=== PATIENT | male | born 1980 | race Caucasian/White ===

== ENCOUNTER 2016-07-28 19:33 | Inpatient (IN) | payer OTHER ==
--- NOTE | ~2016-07-28 | DS ---
Unit #: [id number] #: [id number] Patient: SIRISHA FONTANEZ [id number] [facility] [address] [place] [address] [id number] MR#: [id number] NAME: SIRISHA FONTANEZ ROOM: [facility] Age: 36 Sex: M Admission Date: 07/28/2016 : 1980 Discharge Date: 08/03/2016 Attending Physician: Dean Collazo M.D. Primary Care Physician: Primary Care Physician No DISCHARGE SUMMARY REASON FOR ADMISSION The patient is a 36-year-old white male, admitted in transfer from the [facility] in a state of methamphetamine intoxication. HOSPITAL COURSE The patient was admitted to the [address] [place] [address] unit and placed on suicide precautions. Home medications including Effexor XR and Strattera were not continued and the patient was begun on Geodon 40 mg b.i.d. which he consistently refused to comply as the patient's stay in the hospital progressed, he did become a bit more cooperative and active within the therapeutic milieu. He did acknowledge his methamphetamine use probable and by 08/03/2016, arrangements have been made for the patient to go to "[facility]" in [place], [place]. Discharge was ordered. FINAL DIAGNOSES Methamphetamine use disorder; mood disorder, unspecified. DISPOSITION ON DISCHARGE No psychotropic or other medications were ordered at the time of discharge. FOLLOWUP Followup will take place through the auspices of "[facility]" in [place], [place]. PROGNOSIS The patient's prognosis is considered fair. Dictated by... Dean Collazo M.D. CB/tae TD: 08/03/2016 15:54 JOB #: [id number] Unit #: [id number] #: [id number] Patient: SIRISHA FONTANEZ DISCHARGE SUMMARY Page 1 of 1 X Dean Collazo MD X DISCHARGE SUMMARY
--- NOTE | ~2016-07-28 | PN ---
Unit #: [id number] #: [id number] Patient: SIRISHA FONTANEZ [id number] [facility] [address] [place] [address] [id number] MR#: [id number] NAME: SIRISHA FONTANEZ ROOM: P121 Age: 36 Sex: M Admission Date: 07/28/2016 : 1980 Attending Physician: Dean Collazo M.D. Admitting Physician: Dean Collazo M.D. Primary Care Physician: Primary Care Physician Bailee MENDIETA PROGRESS NOTES DATE 07/31/2016 DISCUSSION The patient finally wakens for interview today. He is angry and irritable during interview but exhibits no pressured speech. He is refusing Geodon stating that he was prescribed Effexor by "the head track coach" prior to coming in the hospital. He very much minimizes his methamphetamine abuse and the roll of this had in his incarceration and suicide attempt. He at this point is euthymic and is denying suicidal ideation though he is uncertain where he will go following discharge. At this point I plan to watch the patient for another 24 hours and should he deny suicidal ideation and continue to refuse medications we will order discharge. Dictated by... Dean Collazo M.D. CB/janice TD: 08/01/2016 03:50 JOB #: [id number] [facility] PROGRESS NOTES Page 1 of 1 X Dean Collazo MD X PROGRESS NOTE
--- NOTE | ~2016-07-28 | PN ---
Unit #: [id number] #: [id number] Patient: SIRISHA FONTANEZ [id number] [facility] [address] [place] [address] [id number] I MR#: [id number] NAME: SIRISHA FONTANEZ ROOM: P121 Age: 36 Sex: M Admission Date: 07/28/2016 : 1980 Attending Physician: Dean Collazo M.D. Admitting Physician: Dean Collazo M.D. Primary Care Physician: Primary Care Physician Bailee MENDIETA PROGRESS NOTES DATE 07/30/2016 DISCUSSION The patient is again abed and cannot be aroused for interview today despite multiple attempts on the part of this physician to arouse him. We continue his trial of Geodon given what appears to have been manic or substance-induced psychotic symptoms at the time of admission. Dictated by... Dean Collazo M.D. CB/bzg TD: 07/30/2016 14:29 JOB #: [id number] [facility] PROGRESS NOTES Page 1 of 1 X Dean Collazo MD PROGRESS NOTE
--- NOTE | ~2016-07-28 | PN ---
Unit #: [id number] #: [id number] Patient: SIRISHA FONTANEZ [id number] [facility] [address] [place] [address] [id number] I MR#: [id number] NAME: SIRISHA FONTANEZ ROOM: [facility] Age: 36 Sex: M Admission Date: 07/28/2016 : 1980 Attending Physician: Dean Collazo M.D. Admitting Physician: Dean Collzao M.D. Primary Care Physician: Primary Care Physician Bailee MENDIETA PROGRESS NOTES DATE 08/01/2016 DISCUSSION The patient is today pleasant and cooperative but is expressing interest in residential chemical dependence treatment. I will ask the social worker clinical to see regarding possible coverage [facility]. Dictated by... Dean Collazo M.D. CB/janice TD: 08/01/2016 22:56 JOB #: [id number] [facility] PROGRESS NOTES Page 1 of 1 X Dean Collazo MD X PROGRESS NOTE
--- NOTE | ~2016-07-28 | HP ---
Unit #: [id number] #: [id number] Patient: ANUJ FONTANEZ [id number] [facility] [address] [place] [address] [id number] I MR#: [id number] NAME: ANUJ FONTANEZ ROOM: P121 Age: 36 Sex: M Admission Date: 07/28/2016 : 1980 Attending Physician: Dean Collazo M.D. Admitting Physician: Dean Collazo M.D. Primary Care Physician: Primary Care Physician No HISTORY AND PHYSICAL HISTORY OF PRESENT ILLNESS Anuj is a 36 year old admitted to [address] [place] [address] reporting depression and verbalizing wanting to hurt himself. He was admitted to [facility] as a transfer from [facility]. He has current charges to include wanton endangerment, assault on a catapult and arresting gear officer, criminal mischief, violation of an EPO and stalking. At the time of this attempted interview and exam, he is belligerent and noncompliant. History is taken from his chart and exam is limited. PAST MEDICAL HISTORY Illicit substance abuse to include methamphetamine. PAST SURGICAL HISTORY Nothing reported. ALLERGIES No known drug allergies. SOCIAL HISTORY Smokes one pack per day. Drinks alcohol on occasion. Has a history of illicit substance abuse to include cocaine, benzodiazepines, spice, and most recently amphetamines. FAMILY HISTORY Medically noncontributory. REVIEW OF SYSTEMS He does not answer any questions appropriately. He is belligerent and threatening. CURRENT MEDICATIONS 1. Geodon 40 mg b.i.d. 2. Thorazine 100 mg q. 6 hours p.r.n. 3. Nicotine patch 14 mg q. day. 4. Milk of Magnesia p.r.n. 5. Maalox p.r.n. 6. Tylenol p.r.n. PHYSICAL EXAMINATION GENERAL: Alert, belligerent, threatening. Otherwise, no apparent distress. VITAL SIGNS: Blood pressure 112/60, heart rate 72, respirations 16, and temperature 98.6. Unit #: [id number] #: [id number] Patient: ANUJ FONTANEZ WEIGHT: 192. HEIGHT: 5 feet 9 inches. SKIN: The patient refuses. HEENT: The patient refuses. NECK: The patient refuses. HEART: Rate and rhythm regular. LUNGS: The patient refuses. ABDOMEN: The patient refuses. : The patient refuses. EXTREMITIES: Moves all without focal deficit. Gait normal. NEUROLOGICAL: The patient refuses. IMPRESSION Psychiatric admission. RECOMMENDATIONS PSYCHIATRIC: Per psychiatrist. MEDICAL: I see no contraindication to participate in this facility's activities. MEDICAL PROGNOSIS Good. MEDICAL CONDITION Stable. Dictated by... Ashwini Shepherd P.A.-C. for González Batres/katty TD: 07/30/2016 10:04 JOB #: [id number] HISTORY AND PHYSICAL Page 1 of 1 X Ashwini Shepherd X HISTORY AND PHYSICAL
--- NOTE | ~2016-07-28 | PA ---
Unit #: [id number] #: [id number] Patient: SIRISHA FONTANEZ [id number] [facility] [address] [place] [address] [id number] I MR#: [id number] NAME: SIRISHA FONTANEZ ROOM: P121 Age: 36 Sex: M Admission Date: 07/28/2016 : 1980 Date of Assessment: 07/29/2016 Attending Physician: Dean Collazo M.D. Admitting Physician: Dean Collazo M.D. Primary Care Physician: Primary Care Physician No PSYCHIATRIC ASSESSMENT IDENTIFYING INFORMATION The patient is a 36-year-old white male admitted after having been recently discharged from the [facility]. He has a history of polysubstance dependence and had reportedly attempted suicide 2 weeks prior to hospitalization. INFORMANT(S) Chart. Patient cannot be aroused for interview having received intramuscular Thorazine after attempting to attack staff. RELIABILITY Fair. CHIEF COMPLAINT None given. HISTORY OF PRESENT ILLNESS The patient is a 36-year-old white male apparently who is admitted in transfer from the [facility]. The patient was claiming to be feeling hopeless, helpless, having panic attacks and bad thoughts. Once admitted to this facility, the patient's behavior has been aggressive and violent leading to multiple p.r.n.'s and seclusion and restraint. The patient is currently in the dayroom sleeping soundly having required a dose of p.r.n. Thorazine shortly prior to evaluation. The patient was hospitalized at this facility in the past under the care of Dr. Trevino and was diagnosed at that time with dysthymic disorder as well as polysubstance use disorder. The patient does report a history of multiple previous suicide attempts. Today, it is not possible to assess his suicidality. The patient reports that he had gone to [facility] last year and was started on Neurontin, Effexor and Strattera but has been sporadically compliant with these medications. PAST PSYCHIATRIC HISTORY As above. FAMILY HISTORY Noncontributory. SOCIAL HISTORY The patient has reportedly completed his GED. He as noted previously admitted in transfer from the [facility]. Current charges include wanton endangerment, assault on a police chief, criminal mischief, violation of an EPO, and stalking. Unit #: [id number] #: [id number] Patient: SIRISHA FONTANEZ MEDICAL HISTORY Noncontributory. MEDICATION HISTORY The patient reports that he has been prescribed gabapentin, Effexor and Strattera but only started on Effexor XR and has not been consistently compliant with this medication. ALLERGIES None. MENTAL STATUS EXAM At this time, reveals the patient to be a well-developed, well-nourished white male appearing stated age. He is sleeping soundly and cannot be aroused for further interview. ASSETS AND LIABILITIES Patient's assets to be assessed. Liabilities, cannot be assessed. ADMITTING DIAGNOSES 1. Mood disorder, unspecified. 2. Methamphetamine use disorder. 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 5. Antisocial personality traits versus disorder. PSYCHIATRIC PLAN/TREATMENT GOALS The patient remains hospitalized for safety and stabilization. At this point, his symptoms seem more consistent with a bipolar manic episode or a episode of methamphetamine induced psychosis though it is unclear whether the patient has had access to methamphetamine in the past couple of weeks given his recent incarceration. Whatever the case, I will discontinue Effexor, gabapentin and Strattera and instead begin the patient on Geodon 40 mg daily with rapid upward titration to take place. Patient will participate in appropriate henderson and milieu activities. ESTIMATED LENGTH OF STAY Three to five days. Dictated by... Dean Collazo M.D. VIJAY/marcy TD: 07/29/2016 15:47 JOB #: [id number] Unit #: [id number] #: [id number] Patient: SIRISHA FONTANEZ PSYCHIATRIC ASSESSMENT Page 1 of 1 X Dean Collazo MD PSYCHIATRIC ASSESSMENT
[2016-07-30 12:15] LABS: BASOPHIL% 0.5 % (0-2.5); EOSINOPHIL# 0.2 X10e3 (0-0.7); EOSINOPHIL% 2.5 % (0.0-7.0); HEMOGLOBIN 12.4 gm/dL (13.0-16.0); LYMPHOCYTE# 2.4 X10e3 (1.0-3.5); LYMPHOCYTE% 28.4 % (17.0-45.0); MEAN CELL VOLUME 90.3 FL (83-96); MEAN CORPUSCULAR HEMOGLOBIN 29.5 PG (28-34); MEAN CORPUSCULAR HGB CONC 32.7 g/dL (30-36); MEAN PLATELET VOLUME 8.3 FL (6.5-11.5); MONOCYTE# 0.5 X10e3 (0-1.0); MONOCYTE% 5.6 % (3.0-12.0); NEUTROPHIL# 5.3 X10e3 (1.5-7.1); PLATELET COUNT 292 X10e3 (140-420); RED CELL DISTRIBUTION WIDTH 13.3 % (11.0-15.5); WHITE BLOOD COUNT 8.4 X10e3 (4.0-10.5)
[2016-07-30 12:26] LABS: ALBUMIN SERUM 3.8 g/dL (3.5-5.0); BILIRUBIN,TOTAL 0.7 mg/dL (0.2-2.0); CALCIUM SERUM 9.2 mg/dL (8.4-10.2); CREATININE SERUM 0.5 mg/dL (0.6-1.4); GLOM FILT RATE Estimated 140.5 mL/min (>60); PROTEIN TOTAL SERUM 6.6 g/dL (6.0-8.3)
[2016-07-30 12:28] LABS: DIFF IND NO
[2016-07-30 12:35] LABS: THYROID STIMULATING HORMONE 0.29 uIU/ml (0.34-5.60)
[2016-07-30 12:42] LABS: FREE THYROXIN (T4) 1.01 ng/dL (0.58-1.64)
== END 2016-08-03 18:04 | disposition home or self-care (01) | DRG 885 ==
LOC: P1S 22:09 → P1E 22:09 → P1S 07-29 12:20
PROVIDERS: Specialist
DX: F39 Unspecified mood [affective] disorder (principal); F13.20 Sedative, hypnotic or anxiolytic dependence, uncomplicated; F15.20 Other stimulant dependence, uncomplicated; F16.20 Hallucinogen dependence, uncomplicated; F60.2 Antisocial personality disorder; F17.210 Nicotine dependence, cigarettes, uncomplicated
CPT/HCPCS: 80053; 84439; 84443; 85025; J1200; J1630; J2060; J3230